=== PATIENT | female | born 2000 | race Caucasian/White ===

== ENCOUNTER 2023-10-11 13:13 | Emergency (ER) | payer OTHER, SELFPAY ==
[2023-10-11 13:29] VITALS: BP 118/69
--- NOTE | 2023-10-11 22:00 | ED.MUSCINJ ---
HPI-Injury
General
Chief Complaint: Musculo-Skeletal Complaint
Source: patient
Exam Limitations: none
Time Seen by Provider: 10/11/23 15:12
Nursing documentation reviewed up to this point in time: agreed with
Travel History
Have you had any contact with someone who has COVID-19?: No
Do you have any symptoms of coronavirus? Fever > 100 degrees, chills, cough, shortness of breath, sore throat, loss of taste or smell, muscle aches, or headache?: No
History of Present Illness-Injury
Is this injury a work related problem?: No
Is pt an associate of [facility]?: No
Initial Injury comments:
Patient states she missed a step and fell down remaining. Denies hitting her head. Landed on left knee and twisted right ankle. Has full nonpainful ROM to left knee. COmplains of pain to right ankle. Brought to ED by family for eval.
Past History
Past History
ED Past Medical History: Psychiatric
ED Past Surgical History: None
Social History
Tobacco: Non-smoker
Alcohol: Occasional
Drug: None
Personal: Single
Living: with family
Review of Systems
Review of Systems
Allergies reviewed?: Yes
All Other Systems: ROS reviewed and negative except as documented in HPI and ROS
Constitutional: Reports no symptoms
Musculoskeletal: Reports joint pain (pain to right ankle)
Skin: Reports no symptoms
Neurological: Reports no symptoms
Psychiatric: Reports no symptoms
Musculoskeletal Injury Exam
Musculoskeletal Injury Exam
Right Ankle:
Pain with Movement?: Moderate
Tender to palpation?: Moderate
Soft tissue swelling?: Mild
External deformity and angulation?: None
Joint effusion?: None
Contusion?: None
Hematoma-local bleeding into tissue?: None
Strain- Sprain- Tear (Connective tissue injury)?: Moderate
Crepitus with movement?: No
Joint instability?: No
Malalignment/deformity?: No
Range of motion: Limited
Distal skin color and temperature: normal-warm & good color
Capillary Refill: normal
Normal distal neurovascular exam?: No
Peripheral Pulses: posterior tibial (right): 3+ and dorsalis pedis (right): 3+
Phy Exam
General Physical Exam
General Presentation: well appearing and no apparent distress
General age: appears stated age
General Skin: warm and dry
General Habitus: normal
General Mental: alert
Musculoskeletal Exam
Musculoskeletal Exam: neuro vasc intact and other (achilles intact. No tenderness base of 5th, proximal tib/fib)
Skin Exam
Skin Exam: normal color, warm/dry and no rash
Psychiatric Exam
Psychiatric Exam: normal mood/affect
Injury Course
Orders/Labs/Results
Orders:
Orders
10/11/23 13:30
Ankle, Right 3 view CR [CR Ankle - Right Min 3 Views *] Urgent
Comment:
Reason For Exam: pain, trauma
10/11/23 15:17
Ortho Boot Right- Treatment ONCE
Short or tall?: Tall
*Radiology
Radiology exam reviewed: radiology read reviewed
*Pulse Oximetry
Patient hypoxic: no
*Critical Care Note
Total Time (30-74mins, 75-104mins- exclusive of procedures): Not Applicable
ED Attending Note
-
Portions of this chart may have been created with voice recognition software.� Occasional wrong word or��sound alike� substitutions may have occurred due to the inherent limitations of voice recognition software.
Discharge Plan
Departure
Patient Disposition: Home (Routine Discharge)
Date of Disposition: 10/11/23
Time of Disposition: 15:17
Patient with high blood pressure during this ER visit?: No
Condition: Good
Covid-19: Not Applicable
Discharge Problem:
Ankle sprain
Instructions: Ibuprofen, Walking Boot, Using Cold for Pain, Ankle Sprain ED
Prescriptions:
No Action
dicyclomine 20 mg tablet
20 mg PO QID PRN (Reason: abdominal pain) Qty: 20 0RF
Referrals:
Vin Brito MD [Active] - (Follow up if your symptoms do not improve over the next week.)
Activity Restrictions/Additional Instructions:
No driving while wearing boot.
Interventions
Interventions:
*Risk Screen - Suicide Last Done: 10/11/23 15:30
*General Assessment Last Done: 10/11/23 15:30
*Neglect/Abuse Screening Last Done: 10/11/23 15:30
*Nursing Disposition Last Done: 10/11/23 15:41
ED-Musculoskeletal Assessment Last Done: 10/11/23 15:01
Discharge Date and Time
Discharge Date/Time: 10/11/23 15:41
Print Language: SRI LANKAN
== END 2023-10-11 15:41 | disposition home or self-care (01) ==
LOC: EMR 13:13
PROVIDERS: EMERGENCY PHYSICIAN Emergency Medicine; FAMILY PHYSICIAN Internal Medicine Geriatric Medicine
DX: S93.401A Sprain of unspecified ligament of right ankle, initial encounter (principal); W10.9XXA Fall (on) (from) unspecified stairs and steps, initial encounter
CPT/HCPCS: 99283; 73610

== ENCOUNTER 2024-08-21 11:33 | Emergency (ER) | payer OTHER, SELFPAY ==
[2024-08-21 11:35] VITALS: BP 159/94
--- NOTE | 2024-08-21 12:32 | ED.GENMED ---
History of Present Illness
General
Chief Complaint: Musculo-Skeletal Complaint
Time Seen by Provider: 08/21/24 11:49
History of Present Illness
History of Present Illness:
24-year-old female presenting to the emerged part with ankle pain. Patient states that she rolled her right ankle. Was complaining of some initial numbness tingling. Did not hit her head or lose consciousness. She denies pain in her knee.
Past History
Past History
ED Past Medical History: Psychiatric
ED Past Surgical History: None
Social History
Tobacco: Non-smoker
Alcohol: Occasional
Drug: None
Personal: Single
Living: with family
Phy Exam
Physical Exam
Physical Exam:
GENERAL: in no acute distress
HEENT: normocephalic
NECK: normal inspection
RESPIRATORY: no respiratory distress
CARDIOVASCULAR: regular rate and rhythm
EXTREMITIES: Left lower extremity with tenderness over the distal fibula. Mild swelling, 2+ DP pulses, neurovascularly intact. Left foot slightly cooler than right foot.
NEUROLOGIC: awake and alert, moves all extremities
SKIN: warm
Course
Orders/Labs/Results
Orders:
Orders
08/21/24 11:37
Ankle, left 3 view CR [CR Ankle - Left Min 3 Views ] Urgent
Comment:
Reason For Exam: rolled left ankle
08/21/24 12:34
Acetaminophen [Tylenol] 1,000 mg PO NOW STA
Ibuprofen [Motrin] 600 mg PO NOW STA
08/21/24 13:26
Crutches-Treatment ONCE
Splints/Slings/Crut- Treatment ONCE
Location: Left
Type of Splint: Other
Comment: posterior short and sugar tong
Vital Signs
Initial and Last Documented VS:
Initial Vital Signs
Temp Pulse Resp BP Pulse Ox
98.2 F 94 16 159/94 98
08/21/24 11:35 08/21/24 11:35 08/21/24 11:35 08/21/24 11:35 08/21/24 11:35
Last Documented Vital Signs
Temp Pulse Resp BP Pulse Ox
98.2 F 94 16 159/94 98
08/21/24 11:35 08/21/24 11:35 08/21/24 11:35 08/21/24 11:35 08/21/24 11:35
MDM/Problems Addressed
Differential Diagnosis Includes:
Patient is a 24-year-old woman presenting to the emergency department with ankle pain. vitals unremarkable exam does show mild tenderness over the left distal fibula. Concern for fracture versus sprain. She is neurovascularly intact though her left
foot does appear slightly cooler than her right foot. She does state that she was icing it and does have cooler feet in general. Will place patient in warm blankets and reassess. On reassessment patient's feet are warm well-perfused. Both her
feet are still slightly cold but there is no obvious discrepancy between the 2 feet. Patient does state that the pain has also improved and that she does not feel as cold either. Patient advised to follow-up with her PCP as well to come to the
emergency department if she noticed any changes to her left extremity.
X-ray per my interpretation possible avulsion fracture. Will place patient in splint and give patient crutches for nonweightbearing. Will have patient follow-up with orthopedic surgery
*Critical Care Note
Total Time (30-74mins, 75-104mins- exclusive of procedures): Not Applicable
ED Attending Note
-
Portions of this chart may have been created with voice recognition software.� Occasional wrong word or��sound alike� substitutions may have occurred due to the inherent limitations of voice recognition software.
Discharge Plan
Departure
Patient Disposition: Home (Routine Discharge)
Date of Disposition: 08/21/24
Time of Disposition: 13:24
Patient with high blood pressure during this ER visit?: No
Discharge Problem:
Avulsion fracture of left talus
Instructions: How to Use Crutches
Prescriptions:
No Action
dicyclomine 20 mg tablet
20 mg PO QID PRN (Reason: abdominal pain) Qty: 20 0RF
Referrals:
Twin Garibay MD [Family Provider] -
Mariusz Street MD [Active] -
Activity Restrictions/Additional Instructions:
You were seen in the Emergency Department today for ankle pain. While you were here we performed an x-ray which showed a possible avulsion fracture of the talus. Please keep the splint on and use crutches. Please do not bear any weight on that leg
until you have been evaluated by orthopedic surgery.
We would like for you to follow up with your primary care physician for further evaluation. If you experience fever, worsening of your symptoms, or develop any other new or concerning symptoms, please return to the Emergency Department immediately.
Please see the attached sheet for additional information.
We discussed pain medications:
You may take Tylenol (also known as Acetaminophen) for pain.
You may take 1000mg Acetaminophen (two extra-strength tablets) per dose, which should be taken every 6-8 hours, or three times a day.
If you have normal strength Tylenol, you can take 650mg (two normal strength tablets) every 4-6 hours.
Do not take more than 3,000mg (3 grams) of Acetaminophen per day.
Never take more than as directed on the bottle.
You may also take Ibuprofen (also known as Motrin or Advil). If taking with Tylenol, alternate and take between dosing.
You may take 400-800mg of Ibuprofen per dose, which should be taken every 6-8 hours.
Do not take more than 3200mg (3.2 grams) of Ibuprofen per day.
We talked about your evaluation, diagnosis, and treatment in the Emergency Department today. You must see your primary doctor for recheck and followup care in order to evaluate your progress or any changes. Have your doctor recheck the test
results/information from the ED visit. As discussed, RETURN to the ED if you develop worsening/changing symptoms or have no improvement in symptoms after the treatments provided.
Interventions
Interventions:
*Risk Screen - Suicide Last Done: 08/21/24 11:35
*General Assessment Last Done: 08/21/24 12:26
*Neglect/Abuse Screening Last Done: 08/21/24 11:35
*ED- Fall Risk Assessment Last Done: 08/21/24 12:26
*ED COVID-19 Vaccine History Last Done: 08/21/24 12:33
ED-Musculoskeletal Assessment Last Done: 08/21/24 12:26
Discharge Date and Time
Print Language: DANISH
[2024-08-21 12:33] VITALS: BMI 44.3
[2024-08-21] MEDS: MOTRIN 600 MG PO (12:46)
[2024-08-21] MEDS: TYLENOL 1000 MG PO (12:46)
[2024-08-21 14:10] VITALS: BP 134/74
== END 2024-08-21 14:12 | disposition home or self-care (01) ==
LOC: EMR 11:33
PROVIDERS: EMERGENCY PHYSICIAN Student in an Organized Health Care Education/Training Program; FAMILY PHYSICIAN Internal Medicine Geriatric Medicine
DX: S92.152A Displaced avulsion fracture (chip fracture) of left talus, initial encounter for closed fracture (principal); X50.1XXA Overexertion from prolonged static or awkward postures, initial encounter; R20.0 Anesthesia of skin; R20.2 Paresthesia of skin
CPT/HCPCS: 99283; 29515; 73610